=== PATIENT | female | born 1990 | race Caucasian/White ===

== ENCOUNTER 2018-06-12 14:50 | Emergency (ER) | payer BC ==
[2018-06-12] MEDS ORDERED: Ketorolac INJ* 30 MG/ML 1 ML VIAL IM ONE (15:06)
[2018-06-12] MEDS ORDERED: Tetan/Diph/Pertus SYR(Tdap)* 0.5 ML SYR(BOOSTRIX) use SYR IM ONE ×2 (15:06→15:08)
[2018-06-12] MEDS ORDERED: Ketorolac INJ* 30 MG/ML 1 ML VIAL ONE (15:07)
--- NOTE | 2018-06-12 15:34 | RAD ---
INDICATION: AC joint separation. Left shoulder injury COMPARISON: Left clavicle same date TECHNIQUE: AP and Y views were obtained. FINDINGS: There is cephalad displacement of the clavicle relative to its expected articulation of the AC joint consistent with AC joint separation. The glenohumeral joint is intact. Soft tissues are intact. IMPRESSION: AC JOINT SEPARATION.
--- NOTE | 2018-06-12 15:34 | RAD ---
INDICATION: Left humerus injury COMPARISON: None TECHNIQUE: AP and lateral views were obtained. FINDINGS: There is no acute humeral fracture. There is AC joint separation described elsewhere. IMPRESSION: AC JOINT SEPARATION.
--- NOTE | 2018-06-12 15:37 | RAD ---
INDICATION: Left AC joint separation COMPARISON: None TECHNIQUE: AP views were obtained. FINDINGS: There is AC joint separation with superior displacement of the clavicle consistent with a.c. and cortical clavicular joint injury. No fracture is seen IMPRESSION: AC JOINT SEPARATION
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
[2018-06-12] MEDS ORDERED: Cephalexin CAP* 500 MG PO ONE (16:42)
--- NOTE | 2018-06-12 17:08 | RAD ---
INDICATION: Left ankle pain COMPARISON: None TECHNIQUE: AP, lateral, and oblique views were obtained. FINDINGS: There is no acute fracture or dislocation. There is laceration about the distal fibula with a small amount of radiodensity about the laceration which could represent foreign bodies. IMPRESSION: LEFT ANKLE LACERATION
[2018-06-12 18:00] VITALS: BP 133/87
== END 2018-06-12 17:58 | disposition home or self-care (01) ==
LOC: ED 14:50
DX: S43.102A Unspecified dislocation of left acromioclavicular joint, initial encounter (principal); S40.212A Abrasion of left shoulder, initial encounter; S91.022A Laceration with foreign body, left ankle, initial encounter; V86.55XA Driver of 3- or 4- wheeled all-terrain vehicle (ATV) injured in nontraffic accident, initial encounter; Y93.89 Activity, other specified; Y92.9 Unspecified place or not applicable; Z23 Encounter for immunization; R21 Rash and other nonspecific skin eruption; Z88.2 Allergy status to sulfonamides; Z87.891 Personal history of nicotine dependence
CPT/HCPCS: 12032; 90471; 90715; 96372; 99282; A9270-GY; J1885

== ENCOUNTER 2018-06-13 15:29 | Emergency (ER) | payer BC ==
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
--- NOTE | 2018-06-13 17:23 | RAD ---
Indication: Syncope. CT of the cervical spine was performed without IV contrast. Sagittal and coronal reconstructed images were obtained. The skull base demonstrates no fracture. Mastoid air cells are well aerated. The C1 ring is intact. There is no evidence of fracture. The vertebral bodies appear normal in height. There is straightening of the normal lordosis. At C2-C3, C3-C4, C4-C5, C5-C6 and C6-C7 no focal protrusion is identified. Lung apices are unremarkable. There is no fracture noted. IMPRESSION: Straightening of the normal lordotic curve. No fracture of the cervical spine is noted.
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
--- NOTE | 2018-06-13 17:42 | RAD ---
Indication: Left hip pain. 2 views of left hip and an AP view of the pelvis demonstrates no fracture. Pelvic ring is intact. Sacroiliac joints and hip joints are unremarkable. IMPRESSION: NO FRACTURE OF THE PELVIS OR LEFT HIP IS NOTED.
[2018-06-13 17:47] LABS: ABS Basophils 0 10^3/ul (0-0.2); ABS Eosinophils 0.1 10^3/ul (0-0.6); ABS Lymphocytes 2.7 10^3/ul (1.0-4.8); ABS Monocytes 1.1 10^3/ul (0-0.8); ABS Nucleated RBC 0 10^3/ul; Eosinophil % 1.1 % (0-6); Hematocrit 35 % (35-47); Hemoglobin 12.2 g/dl (12.0-16.0); Mean Corpuscular HGB Conc 35 g/dl (31-36); Mean Corpuscular Hemoglobin 32 pg (27-31); Mean Corpuscular Volume 91 fL (80-97); Mean Platelet Volume 8.1 um3 (7.4-10.4); Nucleated Red Blood Cells % 0; Platelet Count 215 10^3/ul (150-450); Red Blood Count 3.82 10^6/ul (4.00-5.40); Red Cell Distribution Width 13 % (10.5-15); White Blood Count 10.9 10^3/ul (3.5-10.8)
[2018-06-13 18:10] LABS: EGFR Non-African American 97.3 (>60)
[2018-06-13 19:46] VITALS: BP 137/77
== END 2018-06-13 19:45 | disposition left against medical advice (07) ==
LOC: ED 15:29
DX: R55 Syncope and collapse (principal); M25.552 Pain in left hip; Z88.2 Allergy status to sulfonamides; Z87.891 Personal history of nicotine dependence
CPT/HCPCS: 36415; 70450; 71046; 72125; 80053; 83605; 83735; 84443; 84484; 84702; 85025; 93005; 99283

== ENCOUNTER 2018-06-22 05:54 | Day surgery (SDC) | payer BC ==
[~2018-06-22 05:54] MED LIST: Buffered Lidocaine 0.9% SYRIN* 5 ML/SYR SYRINGE INTRADERM ONE; DiMENhydriNATE IV* 50 MG/ML VIAL IV PUSH PRN; Morphine INJ* 2 MG/ML 1 ML SYRINGE (TWO MG - NEW SYRINGE VERSION) IV PRN; Naloxone* 0.4 MG/ML 1 ML VIAL IV PRN; Ondansetron TAB* 4 MG PO ONE; PROCHLORPERAZINE INJ 5 MG/ML 2 ML VIAL IV PRN; Scopolamine 1.5 mg* PATCH TRANSDERM PRN; fentaNYL* 50 MCG/ML 2 ML VIAL (100 MCG VIAL) IV PRN; oxyCODONE/Acetamin 5/325 MG* TAB PO PRN
[2018-06-22] MEDS ORDERED: Dexamethasone TAB* 4 MG PO ONE (06:00)
[2018-06-22] MEDS ORDERED: Famotidine IV* 10 MG/ML 2 ML (20 mg) IV ONE (06:00)
[2018-06-22] MEDS ORDERED: Famotidine IV* 10 MG/ML 2 ML (20 mg) ONE (06:11)
[2018-06-22] MEDS ORDERED: ceFAZolin 2 GM PREMIX (*) 2 GM/50 ML BAG IVPB ONE (06:12)
[2018-06-22] MEDS ORDERED: Ondansetron ODT TAB* 4 MG ONE (06:12)
[2018-06-22] MEDS ORDERED: Dexamethasone TAB* 4 MG ONE (06:12)
[2018-06-22] MEDS ORDERED: Midazolam* 1 MG/ML 5 ML VIAL (5 MG) ONE (07:07)
[2018-06-22] MEDS ORDERED: fentaNYL* 50 MCG/ML 2 ML VIAL (100 MCG VIAL) ONE ×2 (07:07→10:31)
[2018-06-22] MEDS ORDERED: KETAMINE HCL* 50 MG/ML 10 ML VIAL ONE (07:07)
[2018-06-22] MEDS ORDERED: Bupivacaine 0.5% PF 10 ML VIAL INJ ONE ×2 (07:49→10:56)
[2018-06-22] MEDS ORDERED: Lidocaine 2% PF * 5 ML VIAL ONE (07:51)
[2018-06-22] MEDS ORDERED: PROCHLORPERAZINE INJ 5 MG/ML 2 ML VIAL ONE (07:51)
[2018-06-22] MEDS ORDERED: Propofol* 10 MG/ML 20 ML BTL IV PUSH ONE (07:51)
[2018-06-22] MEDS ORDERED: Ketorolac INJ* 30 MG/ML 1 ML VIAL ONE (07:51)
[2018-06-22] MEDS ORDERED: Morphine VIAL* 10 MG/ML 1 ML VIAL ONE (07:52)
--- NOTE | 2018-06-22 11:46 | RAD ---
Indication: Resection of the distal LEFT clavicle. Comparison: June 22, 2018 chest radiograph. TECHNIQUE: 4.7 seconds fluoroscopy. FINDINGS: Spot images are remarkable for resection of the distal articular margin of the clavicle and 2 lucencies at the distal third of the clavicle likely reflecting surgical anchors. IMPRESSION: Procedural fluoroscopy. CPT II Codes: G9500
--- NOTE | 2018-06-22 11:48 | RAD ---
Indication: Postop LEFT clavicle surgery. Assess for pneumothorax. Comparison: June 13, 2018 Technique: Upright AP 1121 hours Report: Postsurgical change about the LEFT clavicle with resection of the distal articular margin 2 lucencies at the distal third likely reflecting surgical anchors. Mild depression of the acromion relative to the distal clavicle however significantly improved compared with the June 13, 2018 exam. Overlying subcutaneous emphysema and edema. Clear lungs and pleural spaces. Negative for pneumothorax. The heart, pulmonary vasculature, and mediastinal contours are unremarkable. IMPRESSION: #. Negative for pneumothorax. No evidence for acute intrathoracic disease.
[2018-06-22 14:11] VITALS: BP 104/62
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
[2018-06-25] MEDS ORDERED: Scopolamine PATCH Remove* 1 NOTE MISC PATCH OFF ONE (05:39)
== END 2018-06-22 13:30 | disposition home or self-care (01) ==
LOC: OR 05:54
PROVIDERS: ATTEND Orthopaedic Surgery
DX: S43.52XA Sprain of left acromioclavicular joint, initial encounter (principal); S91.002A Unspecified open wound, left ankle, initial encounter; R21 Rash and other nonspecific skin eruption; S70.02XA Contusion of left hip, initial encounter; Z72.0 Tobacco use; V86.59XA Driver of other special all-terrain or other off-road motor vehicle injured in nontraffic accident, initial encounter; Y93.I9 Activity, other involving external motion; Y92.89 Other specified places as the place of occurrence of the external cause
CPT/HCPCS: 71045; 81025; A9270-GY; C1713; C1768; J0690; J0780; J1885; J2250; J2270; J2704; J3010; J8540